=== PATIENT | male | born 1940 | race Caucasian/White ===

== ENCOUNTER 2017-08-23 09:22 | Emergency (ER) | payer MEDICARE ==
--- NOTE | 2017-08-23 09:55 | ED Physician Chart ---
ED Chief Complaint/HPI - Patient Information Date Seen:: 08/23/17 Time Seen:: 09:35 Chief Complaint:: swelling and pain left foot History of Present Illness:: For the last 1 week patient's left foot has been swollen, painful and red. He states he was unable to walk this morning. Patient's been living in his car for last month. He was in an apartment up to 1 month ago but didn't like the facility. Patient also complains of pain and swelling at the base of his right index finger which has occurred before. Allergies:: Allergies Allergy/AdvReac Type Severity Reaction Status Date / Time No Known Allergies Allergy Verified 08/23/17 09:32 Vitals:: Vital Signs - 8 hr 08/23/17 09:32 Temp 98.1 F HR 95 RR 18 BP 167/95 O2 Sat % 96 Historian:: Patient Review:: Nurse's Note Reviewed ED Review of Systems - Review of Systems General/Constitutional: No fever, No chills Skin: Other Head: No headache Eyes: No loss of vision ENT: No earache Neck: No neck pain Cardio Vascular: No chest pain, No palpitations Pulmonary: No SOB GI: No nausea, No vomiting, No diarrhea G/U: No dysuria Musculoskeletal: Bone or joint pain Endocrine: No polyuria Psychiatric: No prior psych history, No depression, No anxiety Hematopoietic: No bruising Allergic/Immuno: No urticaria Neurological: No syncope, No focal symptoms ED Past Medical History - Past Medical History Past Medical History: No significant medical hx Family History: None Social History: Non Smoker, Other (occasional alcohol) Surgical History: None Psychiatricy History: None Medication: None Family Medical History - Family Member Mother Living Status: ED Physical Exam - Physical Examination General/Constitutional: Well-developed, well-nourished, Alert, No distress Head: Atraumatic Eyes: Lids, conjuctiva normal, PERRL Other Skin comments:: Redness and swelling both ankles left more than right; swelling left foot with erythema of dorsum. Redness and swelling MCP joint right index finger. ENMT: External ears, nose nl Neck: No nuchal rigidity Respiratory: Nl effort/Exclusion, Clear to Auscultation, No Wheeze/Rhonchi/Rales Cardio Vascular: RRR GI: No tenderness/rebounding/guarding : No CVA tenderness Extremities: No tenderness or effusion Other Extremities comments:: see under skin Neuro/Psych: No focal deficits Misc: No paraspinal tenderness ED Labs/Radiology/EKG Results - Lab Results Results: Laboratory Results - last 24 hr 08/23/17 08/23/17 09:43 09:43 WBC 10.9 H RBC 3.70 L Hgb 12.0 Hct 35.0 L MCV 94.7 MCH 32.4 H MCHC Differential 34.3 RDW 12.4 Plt Count 317 MPV 6.3 Neutrophils % 83.8 H Lymphocytes % 5.7 L Monocytes % 9.8 Eosinophils % 0.7 Basophils % 0.0 Sodium 130 L Potassium 4.1 Chloride 101 Carbon Dioxide 20.1 L Anion Gap 13.0 BUN 31 H Creatinine 3.5 H Est GFR ( Amer) TNP Est GFR (Non-Af Amer) TNP BUN/Creatinine Ratio 8.9 Glucose 132 H Calcium 9.1 ED Septic Shock - . Is Septic Shock (SBP<90, OR Lactate>4 mmol\L) present?: No - <6hrs of presentation: Vital Signs: Vital Signs - 8 hr 08/23/17 09:32 Temp 98.1 F HR 95 RR 18 BP 167/95 O2 Sat % 96 ED Reassessment (Disposition) - Reassessment Reassessment Condition:: Unchanged - Diagnosis Diagnosis:: gout right hand; cellulitis ankles and feet - Aftercare/Follow up Instructions Aftercare/Follow-Up Instructions:: Refer to Discharge Instructions Medication Prescribed:: Keflex 500 mg 4 times a day for 10 days and Naprosyn 500 mg twice a day for 10 days #20 prescribed. - Patient Disposition Discharge/Transfer:: Home Condition at Disposition:: Stable, Unchanged ED Discharge Plan - Patient Disposition Prescriptions: Cephalexin [Keflex] 500 mg PO QID #40 cap Naproxen [Naprosyn*] 500 mg PO BID #20 tab
[2017-08-23 09:56] LABS: % EOSINOPHILS 0.7 % (0.0-5.0); % LYMPHOCYTES 5.7 % (20.0-50.0); % MONOCYTES 9.8 % (2.0-10.0); % NEUTROPHILS 83.8 % (40.0-80.0); EOSINOPHILE ABSOLUTE 0.1 Th/cmm (0.1-0.4); LYMPHOCYTE ABSOLUTE 0.6 Th/cmm (1.5-3.0); MEAN CELL VOLUME 94.7 fl (80-99); MEAN CORPUSCULAR HEMOGLOBIN 32.4 pg (27.0-31.0); MEAN CORPUSCULAR HGB CONC 34.3 pg (28.0-36.0); MEAN PLATELET VOLUME 6.3 fl; MONOCYTE ABSOLUTE 1.1 Th/cmm (0.3-1.0); NEUTROPHILE ABSOLUTE 9.1 Th/cmm (1.8-8.0); PLATELET COUNT 317 Th/cmm (150-400); RED CELL DISTRIBUTION WIDTH 12.4 % (11.5-20.0); WHITE BLOOD COUNT 10.9 Th/cmm (4.8-10.8)
[2017-08-23 10:14] LABS: BUN - UREA NITROGEN 31 mg/dL (7-25); CALCIUM SERUM 9.1 mg/dL (8.6-10.3); CARBON DIOXIDE 20.1 mEq/L (21.0-31.0); CHLORIDE 101 mEq/L (98-107); CREATININE - SERUM 3.5 mg/dL (0.7-1.3); GLUCOSE 132 mg/dL (70-105); POTASSIUM SERUM 4.1 mEq/L (3.5-5.1); SODIUM SERUM 130 mEq/L (136-145)
== END 2017-08-23 13:19 | disposition home or self-care (01) ==
LOC: ER 09:22
DX: M10.9 Gout, unspecified (principal); L03.116 Cellulitis of left lower limb; Z59.0 Homelessness
CPT/HCPCS: 36415-UA; 80048-TC; 84550-TC; 85007-TC; 85027-TC; J1885; Z7502; Z7610